=== PATIENT | female | born 1955 | race Caucasian/White ===

== ENCOUNTER → 2024-04-09 18:27 | Outpatient (REF) | payer OTHER, SELFPAY | LOC: WDC 18:27 | PROVIDERS: ATTENDING PHYSICIAN Emergency Medicine | DX: Z12.31 Encounter for screening mammogram for malignant neoplasm of breast (principal) | CPT/HCPCS: 77063; 77067 ==

== ENCOUNTER 2024-07-04 12:12 | Emergency (ER) | payer OTHER, SELFPAY ==
[2024-07-04 12:14] VITALS: BP 193/119
--- NOTE | 2024-07-04 12:56 | ED.GENMED ---
History of Present Illness
General
Chief Complaint: Abnormal Lab Value
Source: patient
Time Seen by Provider: 07/04/24 12:35
History of Present Illness
History of Present Illness:
68-year-old female with past medical history of hypertension presenting to the emergency department for evaluation at the request of primary care provider after patient had outpatient labs done a few days ago which showed patient had significantly
elevated liver function tests. Patient states that she feels as if she is in her usual state of health so she is not sure why this is the case. She does note over the last day or so she has felt maybe her sclera looked a little jaundice. She
denies any abnormal weight loss, fevers, chills, abdominal pain, nausea, vomiting, bowel changes. Patient does note since Sunday her urine has been darker in color despite drinking a normal amount of fluids. Patient denies any cigarettes or
tobacco history however does admit to drinking alcohol nightly stating she may up to 3 shots of either gin or vodka but has not done this since Sunday. Family history was noted for mother having previous cholecystectomy but no other GI related
illness or cancer.
Past History
Past History
ED Past Medical History: Asthma and HTN
ED Past Surgical History: None
Social History
Tobacco: Non-smoker
Alcohol: Daily
Drug: None
Personal:
Living: with family
Employment: Employed
Review of Systems
Review of Systems
All Other Systems: ROS reviewed and negative except as documented in HPI and ROS
Phy Exam
Physical Exam
Physical Exam:
GENERAL: Alert , in no apparent distress
EYE: Mildly icteric sclera
HEAD: NCAT
ENT: o/p clr, mmm.
CARDIAC: Regular rate and rhythm .
LUNGS: Clear breath sounds bilaterally, no acute respiratory distress, no wheezes/rales/rhonchi
ABDOMEN: Soft, without focal tenderness, no r/g, no cvat, negative Mao sign, no tenderness at McBurney's point
NEUROLOGICAL: Alert and oriented
SKIN: Warm and dry, skin intact.
MUSCULOSKELETAL: well perfused.
PSYCH: Normal and appropriate interaction.
Scores
Heart Failure Risk
Heart Failure Risk Score: Not Applicable
Heart Score for Chest Pain Patients
STEMI patient?: Not applicable
Withdrawal Assessment of Alcohol
Withdrawal Assessment Completed?: Not applicable
Course
Orders/Labs/Results
Orders:
Orders
07/04/24 12:50
CT Abd/pelvis W Iv Cont Urgent
Comment:
Reason For Exam: abnormal LFT, jaundice, no pain
Urinalysis Reflex To Culture Urgent
Date Specimen was Collected: 07/04/24
Time Specimen was Collected: 13:28
07/04/24 13:16
Acetaminophen Urgent
Alcohol Urgent
Complete Blood Count/With Diff Urgent
Comprehensive Metabolic Panel Urgent
Hepatitis A Antibody, Total Urgent
Hepatitis B Core Ab, IgM Urgent
Hepatitis B Surface Antibody Urgent
Hepatitis B Surface Antigen Urgent
Hepatitis C Antibody Urgent
Lipase Urgent
PTT Urgent
Prothrombin Time Urgent
Abnormal Lab Results
07/04/24
13:16
MCH 34.5 H pg
(27.0-31.0)
Abs Immat Gran (auto) 0.1 H 10^3/uL
(0-0.05)
Immature Gran % 1.2 H %
(0-0.5)
Eosinophils % 6.5 H %
(0-6)
Glucose 100 H mg/dl
(70-99)
Total Bilirubin 6.4 H mg/dl
(0.2-1.3)
AST 188 H U/L
(14-36)
ALT 446 H U/L
(0-35)
Alkaline Phosphatase 736 H U/L
(38-126)
Acetaminophen < 10 L ug/ml
(10-30)
07/04/24 13:16
07/04/24 13:16
Vital Signs
Initial and Last Documented VS:
Initial Vital Signs
Temp Pulse Resp BP Pulse Ox
97.9 F 93 18 193/119 98
07/04/24 12:14 07/04/24 12:14 07/04/24 12:14 07/04/24 12:14 07/04/24 12:14
Last Documented Vital Signs
Temp Pulse Resp BP Pulse Ox
97.9 F 91 18 178/89 98
07/04/24 12:14 07/04/24 13:34 07/04/24 13:34 07/04/24 13:34 07/04/24 13:34
MDM/Problems Addressed
Differential Diagnosis Includes:
Malignancy, less concern for cholecystitis or choledocholithiasis given absence of pain, hepatitis, alcohol associated hepatitis
MDM/Problems Addressed:
68-year-old female presenting to the emergency department for evaluation of abnormal liver function testing done on her outpatient labs. Patient is overall asymptomatic however over the last 24 hours did notice mildly icteric sclera. No fevers, no
abnormal weight loss, otherwise asymptomatic. Clinically I do have concern for malignancy given the painless jaundice combined with abnormal LFTs. Will obtain CT scan for further evaluation. Will repeat labs.
*Radiology
Radiology exam reviewed: radiology read reviewed
*Pulse Oximetry
Patient hypoxic: no
*Critical Care Note
Total Time (30-74mins, 75-104mins- exclusive of procedures): Not Applicable
Patient Management
Discussion with other providers: PCP and [facility] [employer] [facility]
Escalation/DeEscalation of care consider admission/obs:
Patient CT scan without any acute abnormalities within the pelvis or abdomen. There is no obstructive masses or lesions seen. There is a likely 10 mm hemangioma within the right lobe of the liver. Incidental finding of a left adnexal cyst. No
findings to explain patient's abnormal LFTs. Case was discussed with GI who will expedite patient's outpatient follow-up to next week. Patient was given a prescription to have repeat liver function test done on Sunday. Patient was advised of need
for cessation of alcohol. I also notified patient's primary care about ER workup and findings. Patient aware of return precautions to the ER. Stable for discharge home.
ED Attending Note
-
Portions of this chart may have been created with voice recognition software.� Occasional wrong word or��sound alike� substitutions may have occurred due to the inherent limitations of voice recognition software.
Discharge Plan
Departure
Patient Disposition: Home (Routine Discharge)
Date of Disposition: 07/04/24
Time of Disposition: 15:56
Patient with high blood pressure during this ER visit?: No
Discharge Problem:
Abnormal LFTs (liver function tests)
Instructions: Liver Function Test
Prescriptions:
No Action
albuterol sulfate [Proventil HFA] 90 MCG/PUFF HFA aerosol inhaler
1 puff inhalation Q4HPRN PRN (Reason: prn for shortness of breath) Qty: 1 0RF
fluticasone propion-salmeterol [Advair HFA] 1 PUFF HFA aerosol inhaler
2 puff inhalation R BID Qty: 0 1RF
Referrals:
Shahla Street MD [Family Provider] -
Interventions
Interventions:
*Risk Screen - Suicide Last Done: 07/04/24 12:14
*General Assessment Last Done: 07/04/24 12:14
*Neglect/Abuse Screening Last Done: 07/04/24 12:14
ED- Fall Risk Assessment Last Done: 07/04/24 13:33
*Nursing Disposition Last Done: 07/04/24 16:13
Discharge Date and Time
Print Language: JAPANESE
[2024-07-04 13:34] VITALS: BP 178/89
[2024-07-04 13:51] LABS: % Basophils 0.7 % (0-2); % Eosinophils 6.5 % (0-6); % Immature Granulocytes 1.2 % (0-0.5); % Lymphocytes 22.2 % (20.5-51.1); % Monocytes 8.9 % (1.7-9.3); % Neutrophils 60.5 % (42.2-75.2); Absolute Eosinophils 0.4 10^3/uL (0-0.7); Absolute Immature Granulocytes 0.1 10^3/uL (0-0.05); Absolute Lymphocytes 1.3 10^3/uL (1.2-3.4); Absolute Monocytes 0.5 10^3/uL (0.1-0.6); Absolute Neutrophils 3.5 10^3/uL (1.4-6.5); Hematocrit 40.1 % (37.0-47.0); Hemoglobin 14.5 g/dL (12.0-16.0); Mean Corp Hgb Conc. 36.2 g/dL (33.0-37.0); Mean Corpuscular Hgb 34.5 pg (27.0-31.0); Mean Corpuscular Volume 95.5 fL (81.0-99.0); Mean Platelet Volume 9.4 fL (7.4-10.4); Nucleated Red Blood Cells % 0 %; Platelet Count 246 10^3/uL (130-400); White Blood Cell Count 5.7 10^3/uL (4.8-10.8)
[2024-07-04 14:01] LABS: ALT (SGPT) 446 U/L (0-35); AST (SGOT) 188 U/L (14-36); Acetaminophen < 10 ug/ml (10-30); Albumin 4.5 g/dl (3.5-5.0); Alkaline Phosphatase 736 U/L (38-126); Blood Urea Nitrogen 14 mg/dl (7-17); Carbon Dioxide 24 mmol/L (22-30); Chloride 101 mmol/L (98-107); Glucose 100 mg/dl (70-99); Lipase 115 U/L (23-300); Potassium 4.4 mmol/L (3.5-5.1); Sodium 139 mmol/L (135-145); Total Bilirubin 6.4 mg/dl (0.2-1.3); Total Protein 7.2 g/dl (6.3-8.2); eGFR > 60.00
[2024-07-04 14:02] LABS: INR 0.99; PT 12.9 Sec (11.4-14.6)
[2024-07-04 14:03] LABS: Alcohol None Detected
[2024-07-04 16:13] VITALS: BP 150/91
[2024-07-04 16:18] LABS: Urine Albumin Negative (Neg - Trace); Urine Bilirubin Negative (Negative); Urine Character Clear (Clear); Urine Color Yellow; Urine Glucose Negative (Negative); Urine Ketone 1+ (Negative); Urine Leukocyte Negative (Negative); Urine Nitrite Negative (Negative); Urine Occult Blood Negative (Negative); Urine Specific Gravity 1.005 (<1.030); Urine Urobilinogen Negative (Neg - 1+); Urine pH 6.5 (5.0-9.0)
[2024-07-07 19:17] LABS: Hepatitis B Surface Antigen Negative (Negative)
[2024-07-07 19:34] LABS: Hepatitis B Surface Antibody Negative; Hepatitis C Antibody Negative (Negative)
[2024-07-07 20:10] LABS: Hepatitis A Antibody, Total Negative (Negative)
== END 2024-07-04 16:14 | disposition home or self-care (01) ==
LOC: EMR 12:12
PROVIDERS: Physician Assistant Medical; EMERGENCY PHYSICIAN Emergency Medicine; FAMILY PHYSICIAN Emergency Medicine
DX: R94.5 Abnormal results of liver function studies (principal); I10 Essential (primary) hypertension
CPT/HCPCS: 99285; 74177; 80053; 80143; 81003; 82077; 83690; 85025; 85610; 85730; 86705; 86706; 86708; 86803; 87340; Q9967

== ENCOUNTER → 2024-07-08 06:20 | Outpatient (REF) | payer OTHER, SELFPAY ==
[2024-07-08 07:26] LABS: % Basophils 1.3 % (0-2); % Eosinophils 12.2 % (0-6); % Immature Granulocytes 1.9 % (0-0.5); % Lymphocytes 38.1 % (20.5-51.1); % Monocytes 11.3 % (1.7-9.3); % Neutrophils 35.2 % (42.2-75.2); Absolute Basophils 0.1 10^3/uL (0-0.2); Absolute Eosinophils 0.7 10^3/uL (0-0.7); Absolute Immature Granulocytes 0.1 10^3/uL (0-0.05); Absolute Monocytes 0.6 10^3/uL (0.1-0.6); Absolute Neutrophils 1.9 10^3/uL (1.4-6.5); Hematocrit 41.3 % (37.0-47.0); Hemoglobin 14.2 g/dL (12.0-16.0); Mean Corp Hgb Conc. 34.4 g/dL (33.0-37.0); Mean Corpuscular Hgb 35.2 pg (27.0-31.0); Mean Corpuscular Volume 102.5 fL (81.0-99.0); Mean Platelet Volume 9.5 fL (7.4-10.4); Nucleated Red Blood Cells % 0 %; Platelet Count 364 10^3/uL (130-400); Red Blood Cell Count 4.03 10^6/uL (4.20-5.40); Red Cell Dist. Width 14.3 % (11.5-14.5); White Blood Cell Count 5.3 10^3/uL (4.8-10.8)
[2024-07-08 07:50] LABS: ALT (SGPT) 421 U/L (0-35); AST (SGOT) 178 U/L (14-36); Albumin 4.3 g/dl (3.5-5.0); Alkaline Phosphatase 540 U/L (38-126); Blood Urea Nitrogen 14 mg/dl (7-17); Calcium 10.1 mg/dl (8.4-10.2); Carbon Dioxide 30 mmol/L (22-30); Chloride 103 mmol/L (98-107); Glucose 101 mg/dl (70-99); Potassium 4.9 mmol/L (3.5-5.1); Sodium 144 mmol/L (135-145); Total Bilirubin 2.5 mg/dl (0.2-1.3); Total Protein 7.3 g/dl (6.3-8.2); eGFR > 60.00
== END ==
LOC: REG 06:20
PROVIDERS: ATTENDING PHYSICIAN Emergency Medicine; FAMILY PHYSICIAN Emergency Medicine
DX: R74.01 Elevation of levels of liver transaminase levels (principal); R17 Unspecified jaundice
CPT/HCPCS: 36415; 80053; 85025

== ENCOUNTER → 2024-07-15 07:56 | Outpatient (REF) | payer OTHER, SELFPAY | LOC: RAD 07:56 | PROVIDERS: ATTENDING PHYSICIAN Family Medicine; REFERRING PHYSICIAN Internal Medicine Gastroenterology | DX: R74.01 Elevation of levels of liver transaminase levels (principal); R17 Unspecified jaundice | CPT/HCPCS: 76700 ==

== ENCOUNTER → 2024-09-16 08:47 | Outpatient (REF) | payer OTHER, SELFPAY | LOC: RAD 08:47 | PROVIDERS: ATTENDING PHYSICIAN Emergency Medicine | DX: N94.9 Unspecified condition associated with female genital organs and menstrual cycle (principal) | CPT/HCPCS: 76830; 76856 ==

== ENCOUNTER → 2024-09-23 17:36 | Outpatient (REF) | payer OTHER, SELFPAY | LOC: MRI 17:36 | PROVIDERS: ATTENDING PHYSICIAN Emergency Medicine | DX: N83.8 Other noninflammatory disorders of ovary, fallopian tube and broad ligament (principal) | CPT/HCPCS: 72197; A9575 ==

== ENCOUNTER → 2024-10-06 14:39 | Outpatient (REF) | payer OTHER, SELFPAY | LOC: HWRAD 14:39 | PROVIDERS: ATTENDING PHYSICIAN Obstetrics & Gynecology Gynecologic Oncology; FAMILY PHYSICIAN Emergency Medicine | DX: R19.04 Left lower quadrant abdominal swelling, mass and lump (principal); Z12.9 Encounter for screening for malignant neoplasm, site unspecified | CPT/HCPCS: 74177; Q9967 ==

== ENCOUNTER 2024-10-10 05:56 | Day surgery (SDC) | payer OTHER, SELFPAY ==
--- NOTE | 2024-10-06 12:52 | PTCARENOTE ---
Abnormal EKG reviewed by Dr. Roberson, no further action requested.
--- NOTE | 2024-10-09 11:22 | W.CON.GYNONC ---
Chief Complaint
-
Pelvic Mass
History of Present Illness
68�year�old�woman�referred�to�me�for�evaluation�of�a�pelvic�mass.�She�was�seen�in�the�emergency�room�at[facility]�for acute�elevation�of�liver�enzyme�tests,�as�part�of�her�evaluation�a�CT�of�abdomen�and�pelvis�was�performed,�subtle�10�mm
hypodensity�within�posterior�right�hepatic�lobe�becoming�slightly�hyperdense�on�delayed�images�was�noted�which�was�a hemangioma.�Comments�were�made�about�a�large�left�adnexal�cyst�measuring�5.8�cm.�Multiple�prominent�periuterine�varicosities
were�enlarged�draining�left�gonadal�vein�was�also�present.��she�underwent�an�MRI�of�pelvis�with�and�without
contrast,�complex�mass�of�left�ovary�measuring�6�x�4.9�cm�present,�it�contained�predominantly�T1�hyperintense�signal�suggestive�of
blood�products,�internal�soft�tissue�nodularity�is�present�primarily�along�posterior�aspect�of�the�mass�which�measures�1.2�cm�in
thickness�and�showing�enhancement�on�the�provided�postcontrast�subtracted�sequences.�Fibroid�uterus�is�present,�measuring�3.4 cm,�endometrium�is�thin�measuring�10�3�mm.�There�is�concern�for�an�ovarian�neoplasm.�Malignant�transformation�within�an
endometrioma�could�be�a�consideration�and�she�was�referred�to�us�for�further�evaluation. Past�medical�history�is�hypertension�and�asthma Past�surgical�history�is�none
Social�history�significant�for�,�employed,�she�is�a�non�smoker,�she�drinks�alcohol�daily�she�denies�any�drug�or�Marijuana use.�
Allergies Bactine�(with�alcohol),�Sulfa�(Sulfonamide�Antibiotics)
Medications
Calcium�500�500�mg�(as�calcium�carbonate�1,250 mg)�chewable�tablet 10/02/2024 0 1�p.o.�q.�day
Lexapro�10�mg�tablet 10/02/2024 0 1�p.o.�q.�day
multivitamin�oral 10/02/2024 0 1�p.o.�q.�day
Vitamin�D3�50�mcg�(2,000�unit)�capsule 10/02/2024 0 1�p.o.�q.�day
Yuvafem�10�mcg�vaginal�tablet 10/02/2024 0 twice�a�week
Medical History
Allergies
Allergies reflect when allergies were last updated in [employer].
Sulfa (Sulfonamide Antibiotics) Allergy (Verified 10/06/24 09:02)
Unknown
Review of Systems
-
History Source: Patient
A 12 point Review of Systems was completed except as noted: Yes
Physical Exam
Physical Exam
Pelvic�Examination: External�normal�labia,�urethra,�anus.� Vagina:�Normal�mucosa.� Cervix:�normal�appearance,�no�discharge.� Uterus:�normal�size. Adnexa:fullness�appreciated�in�cul�de�sac,�smotth,�no�nodularity�non�tender�
RVE:�no�masses�or�nodularity General: Neck:�No�thyromegaly.�No�cervical�lymphadenopathy. Lungs:�Clear�to�auscultation.�Good�air�movement�bilaterally. Cardiac:�Regular�rate.�Regular�rhythm.�No�murmurs�appreciated.
Right�Breast:�No�masses�or�dimpling.�No�nipple�discharge. Left�Breast:�No�masses�or�dimpling.�No�nipple�discharge. Abdomen:�Abdomen�is�soft.�Non�tender�to�palpation.�Non�distended. Extremities:�No�edema.
Hematologic/Lymphatic:�No�palpable�lymphadenopathy. Musculoskeletal:�Normal�range�of�motion.�Strength�and�Tone�are�normal. Skin:Non�jaundiced.�No�petechia.�No�purpura.
Results
-
Diagnostic Imaging Report
SignedOrder #:[id number]
Exams: CT Abd/pel W Iv And Oral Contr
EXAMINATION: CT of the abdomen and pelvis with oral and intravenous contrast.
INDICATION: Left lower quadrant abdominal swelling, mass and lump. Encounter for screening for malignant neoplasm, site unspecified. Evaluate upper abdomen and chest for ascites, lymph node enlargement, and carcinomatosis.
TECHNIQUE: Contiguous helical acquisition from the bases of the lungs through the pubic symphysis following the intravenous administration of 80 ml of Omnipaque. Automated dose reduction technique was utilized. Axial reconstructions and sagittal and
coronal reformats provided. Delayed phase images were acquired.
COMPARISON: 07/04/2024.
FINDINGS:
Lung Bases: The lung bases are clear. There is a small hiatal hernia.
Abdomen and pelvis: Liver shows diffuse mildly decreased attenuation consistent with fatty infiltration. Posterior right lobe of the liver shows irregularly-shaped 1.2 cm low-attenuation lesion. This shows some peripheral contrast enhancement on the
early phase images which is more conspicuous on the coronal projection. This lesion is inconspicuous on the delayed phase, slightly increased attenuation, therefore most likely benign hepatic hemangioma (image #24 delayed phase). This is without
significant change from the previous examination. Probably also visible on the most inferior slice of low dose CT chest obtained 05/22/2023 (image #61 series 204). No suspicious focal hepatic lesions. No intrahepatic biliary dilation. Gallbladder is
contracted, otherwise unremarkable. Spleen is unremarkable. No abnormal focal pancreatic lesion identified. Adrenal glands are unremarkable. Left kidney shows upper pole benign simple cyst measuring 2.7 cm in diameter. The left kidney also shows
benign parapelvic cysts. There is no hydronephrosis. No enhancing renal mass is seen. Right kidney shows no focal lesions.
There is no bowel obstruction. The appendix is normal. No abnormal focal inflammatory reaction of the bowel is identified. There is no free air or free fluid within the abdomen. There is no retroperitoneal lymphadenopathy. There is no mesenteric
lymphadenopathy. There are some subcentimeter mesenteric lymph nodes, nonspecific.
Urinary bladder is unremarkable. Uterus is retroverted similar to previous study. There is large left adnexal cystic mass as seen previously. Maximum axial diameter is 6.0 cm on this examination, slightly smaller as compared with approximately 6.[address] There is layering increased attenuation within the cystic mass which is similar to the previous study. This mass was more fully characterized on previous ultrasound and MRI. There are dilated tortuous varices in the left pelvis as
seen previously. Associated mild dilation of the left gonadal vein incidentally noted. Rectum is unremarkable. No free fluid is seen within the pelvis. No pelvic lymphadenopathy is identified.
Bone: Degenerative changes. Benign osseous hemangioma L3. Small benign osseous hemangioma at T12.
IMPRESSION:
1. Complex cystic mass of the left adnexa appears minimally smaller as compared with the previous CT examination. Size is unchanged from recent previous MRI. No findings suspicious for metastatic disease identified.
2. Mild hepatic fatty infiltration. Probable benign hepatic hemangioma posterior right lobe as seen previously.
3. Benign simple fluid attenuation left renal cysts.
Data Reviewed
-
Diagnostic Radiology: Image personally visualized and interpreted
CT Scan: Image personally visualized and interpreted
MRI: Image personally visualized and interpreted
Lab Data: Labs Reviewed
Impression / Plan
-
68�year�old�woman�has�a�asymptomatic�6�cm�mass�in�the�left�ovary.�There�is�a�few�features�that�are�concerning�which�is
excrescences�within�the�cystic�mass.�Most�likely�this�is�an�epithelial�tumor�arising�from�the�ovary�which�could�be�cystadenofibroma
low�malignant�potential�tumor�or�potentially�an�invasive�cancer.�Her�last�CT�scan�back�in�[place]�did�not�reveal�any�evidence�of abnormalities�involving�upper�abdomen�but�there�has�been�3�months�interval�time.�I�am�recommending�a�repeat�CT�of�chest
abdomen�and�pelvis�to�look�for�upper�abdominal�disease�as�this�will�affect�the�plan�for�management.�Assuming�there�is�no�evidence of�ascites�carcinomatosis�lymphadenopathy�or�pleural�effusion�the�patient�is�a�candidate�for�surgery.
I�recommended�obtaining�labs�including�tumor�markers�today�in�preparation�for�surgery She�needs�to�see�her�primary�care�physician�for�medical�clearance�for�upcoming�surgery
I�recommended�we�probably�proceed�with�robotic�assisted�total�laparoscopic�hysterectomy�bilateral�salpingo�oophorectomy�with
plan�for�comprehensive�staging�including�omentectomy�pelvic�and�periaortic�lymph�node�dissection�multiple�peritoneal�biopsies pelvic�and�subdiaphragmatic�washings�possible�bowel�resection.�The�patient�understands�that�conversion�to�laparotomy�may�be
necessary�to�complete�the�procedure. She�will�need�to�see�me�2�weeks�postoperatively,�depending�on�the�pathology�she�may�require�additional�adjuvant�treatments.
Risk�of�procedure�including�infection,�bleeding,�injury�to�adjacent�organs,�DVT�pulmonary�embolism�and�cardiovascular complications�were�discussed�and�reviewed.
Surgery�will�be�scheduled�at�[facility]�and�she�would�like�to�try�to�have�this�done�in�[place].�She�was�planning�to
travel�to�[place]�today�and�because�of�this�new�finding�she�has�canceled�the�trip�and�I�certified�a�letter�for�her�cancellation.
[2024-10-10] VITALS (8 sets, daily range): BP systolic 128–154; BP diastolic 68–105; BMI 25.2
[2024-10-10] MEDS: NEURONTIN 300 MG PO (06:34)
[2024-10-10] MEDS: HEPARIN 5000 UNITS SC (06:35)
[2024-10-10] MEDS: TYLENOL 1000 MG PO (06:35)
--- NOTE | 2024-10-10 09:53 | OR.RPT ---
Operative Report
Operative Report
Date of procedure: October 10, 2024
Preoperative diagnosis: Left lower quadrant pelvic mass, elevated CA125
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
Procedure:
Robotic assisted tumor cytoreduction including total laparoscopic hysterectomy, bilateral salpingo-oophorectomy and infracolic omentectomy, multiple peritoneal resections and washings [id number]
Robotic assisted laparoscopic bilateral pelvic lymphadenectomy and left periaortic lymph node dissection 19215
Robotic assisted laparoscopic appendectomy
TAP Block
Surgeon: John Parker MD
Assist: Vince Sands PA-C, Penny Zambrano PA-C
The assistance of CLOVIS Salvador & Penny Zambrano PA-C was required due to the complexity of the procedure. During the procedure both assisted with retraction, resection, and closure of the wound.
Anesthesia: General ET
Estimated blood loss: 100 cc
Complications: None
Specimen: Uterus and cervix and right tube and ovary, left tube and ovary, pelvic washings, right diaphragmatic washings, right and left pelvic peritoneal biopsies, right and left paracolic gutter biopsies anterior and posterior cul-de-sac biopsies,
omentum, appendix, left round ligament biopsy
Procedure in detail: This patient was taken to the operating room and placed in supine position, general anesthesia was administered, she was intubated without any difficulty arms were protected with pads across all joints after IV placements and
she was positioned in lithotomy position using yellowfin stirrups she was prepped on the abdomen perineum and vagina, she was draped Almaguer catheter was inserted under sterile conditions. Timeout procedure was carried out, she had received Ancef and
Flagyl for prophylaxis. Anterior lip of the cervix was grasped with single-tooth tenaculum, cervical canal was dilated and a uterine manipulator with GREGG ring was placed in the uterine cavity and 3 cm GREGG ring was placed around the cervix vaginal
occluder was insufflated. Attention was turned abdominally, Veress needle was inserted just below the left subcostal margin, insufflation with CO2 gas was performed up to pressure of 15 mmHg. Next 8 mm Xi robotic port was inserted 25 cm cephalad
to symphysis pubis into the peritoneal cavity,
Operative findings included smooth peritoneal surfaces and pelvis and upper abdomen as well as right and left diaphragm, normal right and left lobe of the liver normal stomach gallbladder omentum, large cystic mass about 8 cm is visible sitting in
the posterior cul-de-sac arising from left ovary, right tube and ovary appeared to be normal in appearance. There is scattered hemosiderin deposits through the peritoneal cavity suggestive of endometriosis. At the completion of surgery there was
no evidence of residual disease.
8 mm Xi robotic ports were placed in the right and left upper quadrants as well as left and right lateral abdomen. Tap block was performed using ropivacaine 0.5% 30 cc diluted with 30 cc sterile saline and Decadron and injected equally 2
fingerbreadths below subcostal margins in the right and left upper abdomen and right and left lateral abdomen between muscle and peritoneum and the abdominal wall. We collected washings from posterior cul-de-sac as well as right subdiaphragmatic
space. Patient was placed in 28 degree Trendelenburg, robotic system was docked, right and left round ligaments were sealed and divided anterior and posterior leaves of the broad ligament were dissected open the course of the ureter's were
identified on both sides and a window was created between IP ligaments and ureters bilaterally the IP ligaments were isolated sealed 3 times and divided the left tube and ovary was detached from the uterus and left in the posterior cul-de-sac, it
was eventually placed within endoscopic bag for retrieval. Bladder flap was sharply developed and advanced below the cervicovaginal junction. Uterine arteries were skeletonized uterine arteries followed by cardinal ligaments followed by
uterosacral ligaments were sealed and divided circumferential incision was made over the Gregg ring until the specimen was completely detached. Uterus and cervix and right tube and ovary was removed through the vagina, endoscopic bag containing the
left ovary was removed intact out of the body, I inspected the ovary myself and noted that the contents was hemorrhagic or old chocolate fluid however the cyst had nodularities in its anterior surface consistent with the radiologic findings
preoperatively. Next this was sent for frozen section. Peritoneal biopsies were performed from anterior and posterior cul-de-sac, right and left pelvic peritoneum left round ligament as well as right and left paracolic gutters. I went ahead and
brought the omentum into view, a series of omental vessels were sealed and divided with vessel sealer and most of the infracolic omentum was removed from hepatic flexure up to close to splenic flexure. Next we examined the small bowel in its
entirety which was normal. Appendix was identified, mesoappendix was sealed and divided with vessel sealer, Endo JUAN stapler 45 mm with a vascular load was fired at the base of the appendix and the cecum and the appendix was removed through the
vagina and submitted to pathology. Frozen section of the ovary reveals evidence of serous borderline tumor. I did perform bilateral pelvic lymphadenectomy removing the lymph nodes between bifurcation of common iliac vessels down to the level of
deep circumflex iliac artery and vein along the external iliac artery and vein as well as hypogastric vessel and obturator fossa anterior to the obturator nerve. Excellent hemostasis was obtained and there was no injury to vessels nerves or ureter.
I mobilized the left colon and perform low periaortic lymph nodes between CESILIA and bifurcation of common iliac vessel and these were submitted as left periaortic lymph nodes I did not perform right periaortic lymph nodes because of the report of
frozen section and the fact that the tumor was unilateral. At this point we prepared for the closure of the cuff the vaginal cuff was closed with 0 Vicryl suture ligature in a [id number] fashion incorporating uterosacral ligaments. Next V-Loc
suture was used to close the cuff starting from right to the left and back to the right side in 2 layers. We sprayed 8 mL of Tisseel over the right and left pelvic lymph node as well as periaortic lymph node and vaginal cuff regions. All operative
sites appear to have good hemostasis there was no evidence of residual disease we proceeded to undocked the robotic system and released the pneumoperitoneum. All ports were removed. All skin incisions were closed with 4-0 Monocryl. Almaguer catheter
was removed at the completion of the case. Vagina was inspected and there was no lacerations noted. Patient was awakened extubated and returned back to recovery room stable awake and extubated condition. Counts of laps instruments and needle was
correct x 2. I was present and scrubbed for entire procedure as dictated above.
Disposition: To PACU awake alert extubated stable
== END 2024-10-10 12:10 | disposition home or self-care (01) ==
LOC: SDS 05:56
PROVIDERS: ATTENDING PHYSICIAN Obstetrics & Gynecology Gynecologic Oncology; FAMILY PHYSICIAN Emergency Medicine
DX: R19.04 Left lower quadrant abdominal swelling, mass and lump (principal); D18.03 Hemangioma of intra-abdominal structures
CPT/HCPCS: 58571; 38573; 88304; 88305; 88307; 88332; 36415; 86850; 86900; 86901; 88112; 88331; 93005; C9250

== ENCOUNTER → 2025-03-25 14:11 | Outpatient (REF) | payer OTHER, SELFPAY | LOC: HWRAD 14:11 | PROVIDERS: ATTENDING PHYSICIAN Emergency Medicine; REFERRING PHYSICIAN Internal Medicine | DX: Z87.891 Personal history of nicotine dependence (principal) | CPT/HCPCS: 71271 ==

== ENCOUNTER → 2025-04-13 18:59 | Outpatient (REF) | payer OTHER, SELFPAY | LOC: WDC 18:59 | PROVIDERS: ATTENDING PHYSICIAN Emergency Medicine | DX: Z12.31 Encounter for screening mammogram for malignant neoplasm of breast (principal) | CPT/HCPCS: 77063; 77067 ==

== ENCOUNTER → 2025-04-22 09:18 | Outpatient (REF) | payer OTHER, SELFPAY | LOC: RAD 09:18 | PROVIDERS: ATTENDING PHYSICIAN Internal Medicine Rheumatology; FAMILY PHYSICIAN Emergency Medicine; REFERRING PHYSICIAN Nurse Practitioner Adult Health | DX: M81.0 Age-related osteoporosis without current pathological fracture (principal) | CPT/HCPCS: 77080 ==

== ENCOUNTER → 2025-04-30 18:35 | Outpatient (REF) | payer OTHER, SELFPAY | LOC: MRI 18:35 | PROVIDERS: ATTENDING PHYSICIAN Physician Assistant; FAMILY PHYSICIAN Emergency Medicine | DX: H90.A21 Sensorineural hearing loss, unilateral, right ear, with restricted hearing on the contralateral side (principal) | CPT/HCPCS: 70553; A9575 ==

== ENCOUNTER → 2025-09-18 16:39 | Outpatient (REF) | payer OTHER, SELFPAY | LOC: RAD 16:39 | PROVIDERS: ATTENDING PHYSICIAN Obstetrics & Gynecology Gynecologic Oncology; FAMILY PHYSICIAN Emergency Medicine | DX: R19.4 Change in bowel habit (principal); Z12.9 Encounter for screening for malignant neoplasm, site unspecified; D39.12 Neoplasm of uncertain behavior of left ovary; C56.2 Malignant neoplasm of left ovary | CPT/HCPCS: 74177; Q9967 ==